=== PATIENT | male | born 1950 | race Caucasian/White ===

== ENCOUNTER 2017-08-13 13:22 | Emergency (ER) | payer MEDICARE, OTHER ==
[2017-08-13 13:37] VITALS: BP 184/95
--- NOTE | 2017-08-13 13:57 | EDM.PDOC ---
ED HPI GENERAL MEDICAL PROBLEM - General Chief Complaint: Laceration Stated Complaint: FISH HOOK RT RING FINGER Time Seen by Provider: 08/13/17 13:30 Source of Information: Reports: Patient History Limitations: Reports: No Limitations - History of Present Illness INITIAL COMMENTS - FREE TEXT/NARRATIVE: 66-year-old male with a adryan of a fish hook embedded into the pulp of the index finger on the right hand. It is been present for over 1 hour. Onset: Today Right Hand Pain Score (Numeric/FACES): 0 - Related Data Allergies Allergy/AdvReac Type Severity Reaction Status Date / Time No Known Allergies Allergy Verified 08/13/17 13:42 Home Meds: Home Meds Lisinopril 5 mg PO DAILY 08/13/17 [History] Past Medical History Cardiovascular History: Reports: Hypertension, Other (See Below) Other Cardiovascular History: leaking valve Musculoskeletal History: Reports: Gout Social & Family History - Tobacco Use Smoking Status *Q: Never Smoker - Caffeine Use Caffeine Use: Reports: Coffee - Recreational Drug Use Recreational Drug Use: No ED ROS GENERAL - Review of Systems Review Of Systems: ROS reveals no pertinent complaints other than HPI. Constitutional: Denies: Fever Respiratory: Denies: Shortness of Breath GI/Abdominal: Denies: Nausea, Vomiting ED EXAM, SKIN/RASH Exam: See Below Exam Limited By: No Limitations General Appearance: Alert, No Apparent Distress Respiratory/Chest: No Respiratory Distress Extremities: Other (Exam is otherwise limited to the right hand. There is a adryan of a treble hook embedded into the pulp of the index finger.) Course - Vital Signs Last Recorded V/S: Last Vital Signs Temp 96.6 F 08/13/17 13:43 Pulse 70 08/13/17 13:43 Resp 16 08/13/17 13:43 BP 184/95 H 08/13/17 13:43 Pulse Ox 94 L 08/13/17 13:43 - Orders/Labs/Meds Meds: Medications Discontinued Medications Generic Name Dose Route Start Last Admin Trade Name Frerose mary PRN Reason Stop Dose Admin Lidocaine HCl 5 ml 08/13/17 13:38 08/13/17 13:46 Xylocaine-Mpf 1% INJECT 08/13/17 13:39 5 ml ONETIME ONE Administration - Re-Assessments/Exams Free Text/Narrative Re-Assessment/Exam: 08/13/17 13:55 The finger was sterilized with alcohol, small amount of 1% lidocaine was infiltrated into the area and the fishhook removed with a needle almost pliers. He was again cleaned thoroughly, bacitracin was applied and a Band-Aid. Patient' s tetanus is up-to-date. He is to keep the wound clean and covered while healing , and can recheck if concerns of infection. Departure - Departure Time of Disposition: 14:02 Disposition: Home, Self-Care 01 Condition: Good Clinical Impression: [place] injury to finger Qualifiers: Encounter type: initial encounter Laterality: right Qualified Code(s): S69.91XA - Unspecified injury of right wrist, hand and finger(s), initial encounter - Discharge Information Instructions: Puncture Wound, Fcew-dt-Aclk Referrals: PCP,None [Primary Care Provider] - Forms: ED Department Discharge Care Plan Goals: Keep wound covered and clean while healing. Recheck if concerns of infection or not healing satisfactorily.
== END 2017-08-13 14:02 | disposition home or self-care (01) ==
LOC: JP.ED 13:22
DX: S60.450A Superficial foreign body of right index finger, initial encounter (principal); W45.8XXA Other foreign body or object entering through skin, initial encounter
CPT/HCPCS: 10120; 99283; 99283-25